=== PATIENT | female | born 2005 | race Caucasian/White ===

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

== ENCOUNTER 2024-02-12 10:01 | Inpatient (IN) ==
[2024-02-12] MEDS ORDERED: OXYTOCIN 10 UNIT/ML VIAL IM PRN (10:41)
[2024-02-12] MEDS ORDERED: LACTATED RINGERS 1,000 ML IV PRN (10:41)
[2024-02-12] MEDS ORDERED: NIFEdipine 10 MG CAPSULE PO PRN (10:41)
[2024-02-12] MEDS ORDERED: CARBOPROST TROMETHAMINE 250 MCG/ML VIAL IM PRN (10:41)
[2024-02-12] MEDS ORDERED: SODIUM CHLORIDE FLUSH 0.9% 10 ML SYRINGE IVP PRN (10:41)
[2024-02-12] MEDS ORDERED: METHYLERGONOVINE 0.2 MG/ML VIAL IM PRN (10:41)
[2024-02-12] MEDS ORDERED: hydrALAZINE INJ 20 MG/ML VIAL IVP PRN ×2 (10:41)
[2024-02-12] MEDS ORDERED: TRANEXAMIC ACID IN NACL 1,000 MG/100 ML BAG IV PRN (10:41)
[2024-02-12] MEDS ORDERED: LABETALOL 20 MG/4 ML SYRINGE IVP PRN ×3 (10:41)
[2024-02-12] MEDS ORDERED: miSOPROStoL 200 MCG TABLET BC PRN (10:41)
--- NOTE | 2024-02-12 10:48 | HISTORY & PHYSICAL EXAMINATION ---
Admit History Smoking Status: Never smoker Meds/Allgy Home Medications Ambulatory Orders Medication Instructions Recorded Confirmed vitamins no.159-iron tab PO 12/26/23 02/05/24 fumarate 28 mg-folic acid 800 mcg tablet ( Vitamin) Allergies Allergies Allergy/AdvReac Type Severity Reaction Status Date / Time No Known Drug Allergies Allergy Verified 02/05/24 08:50 [facility] Social History Social History (Updated 12/26/23 @ 10:13 by Marian Richter MA) Smoking Status: Never smoker Do you vape?: No ETOH Use: None Substance Use: denies use Plan for Labor Plan For Labor I expect patient to be DC'd or transferred within 96 hours.: Yes Plan for Labor: HPI: Kyara is a 19yo @ 39.5wks gestation by LMP c/w 11wk U/S who presents to [facility] for term induction of labor. She denies vaginal bleeding, leakage of fluid or contractions. She reports +FM. Upon arrival her cervix is 1/50/-2 and vertex with intact membranes. FHR baseline is noted to be in a Category I pattern with FHR baseline 130s and no contractions appreciated via tocometry. She has been a patient of [facility] for the duration of her which has remained uncomplicated. She is supported by her family today. She will be admitted to [facility] for induction of labor with pre-induction cervical ripening. She is noted to be GBS positive and will receive antibiotics for prophylaxis per protocol. Dating criteria: LMP: 05/10/2023 NENITA by LMP: 02/14/2024 Initial U/S 08/03/2023 @ 11+2 C/W LMP dating (02/20/2024 by U/S) Final NENITA: 02/14/2024 Medical Hx: no significant Surgical Hx: none Social Hx: She is active duty [employer]. FOB: NOT involved- Does not wish to discuss. Never smoker. No ETOH or IVDA. Well supported by family and friends. Family Hx: Non contributory Pre- Weight:146.6 BMI: 24.48 Blood type: A+ Antibody: Negative CBC: PLT 269 HCT 34.1 HGB 11.8 RUB: Equivocal (13) VZV:Immune HBsAg: Negative HepC: NR RPR/AB-EIA: NR HIV: NR PAP:never GC/CT: 08/20 negative HSV:denies Genetic testing: not interested Covid: vaccinated Flu: vaccinated FAS: 10/05 Placenta: fundal; w/ pedunculated fibroid Cord: 3VC LEMUEL: 16.9cm EFW: 322g; 21%tile 50gm OGCT: 130 3HR GTT: TDAP: 12/26/2023 Breast Pump: RPR: NR Antibody screen: 3rd trimester PLT 266 HBG11.6 HCT 34.4 3rd trimester HIV GBS: POSITIVE Physical exam: Normocephalic, atraumatic Heart RRR w/o M/G/R Lungs CTAB Abdomen gravid, soft, nontender FHR baseline 130s, moderate variability, + accels, no decels No contractions appreciated via tocometry SVE 1/50/-2, vertex Bilateral LE's trace edema Mood is good Assessment: 19yo @ 39.5wks gestation Term induction of labor FHR Category I GBS positive Plan: Pre-induction cervical ripening placement of cervical ripening balloon with 50mcg BC misoprostol q 4 hrs Continuous monitoring Jacuzzi PRN. Nitrous oxide PRN. Epidural per maternal request. Anticipate .
--- NOTE | 2024-02-12 11:21 | PHARMACY PROGRESS NOTE ---
Best Possible Medication History Admit Date and Time: 02/12/24 1041 Home Medications Medication Instructions Recorded Confirmed Type vitamins no.159-iron 1 tab PO DAILY 12/26/23 02/12/24 History fumarate 28 mg-folic acid 800 mcg tablet ( Vitamin) Processed by: Pharmacy Medications reviewed in ED?: No Medication History completed: Yes Patient Interview: Pt unable to participate Secondary Source(s): Physician records and Insurance records [facility] Statement: As the person ultimately responsible for medication therapy, providers are able to order a medication from an existing home medication list in [facility] via the "Reconcile Routine" prior to Confirmation of that medication by service support representative. Such practice is discouraged except when the physician, in their clinical judgment, deems that a medical need exists for a medication without regard to previous use.
[2024-02-12 13:50] LABS: BASOPHILS % (AUTO) 0.3 %; EOSINOPHILS # (AUTO) 0.1 10^3/uL (0.0-0.7); EOSINOPHILS % (AUTO) 0.7 %; HCT - HEMATOCRIT 34.3 % (37.0-47.0); HGB - HEMOGLOBIN 12.1 g/dL (12.0-16.0); LYMPHOCYTES # (AUTO) 2.8 10^3/uL (1.5-3.5); LYMPHOCYTES % (AUTO) 26.3 %; MEAN CORPUSCULAR HEMOGLOBIN 32.6 pg (27.0-31.0); MEAN CORPUSCULAR HGB CONC 35.3 g/dL (32.0-36.0); MEAN CORPUSCULAR VOLUME 92.5 fL (81.0-99.0); MEAN PLATELET VOLUME 10.9 fL (7.9-10.8); MONOCYTES # (AUTO) 0.6 10^3/uL (0.0-1.0); MONOCYTES % (AUTO) 5.9 %; NEUTROPHILS # (AUTO) 7.1 10^3/uL (1.5-6.6); NEUTROPHILS % (AUTO) 66.2 %; PLT - PLATELET COUNT 226 10^3/uL (130-450); RED BLOOD COUNT 3.71 10^6/uL (4.20-5.40); RED CELL DISTRIBUTION WIDTH 13.2 % (12.0-15.0); WHITE BLOOD COUNT 10.7 x10^3/uL (4.8-10.8)
[2024-02-12 14:04] LABS: CREATININE,URINE 18.3 mg/dL; TOTAL PROTEIN,URINE TIMED < 4 mg/dL
[2024-02-12 14:05] LABS: ALBUMIN 3.6 g/dL (3.2-5.5); BILIRUBIN,TOTAL 0.3 mg/dL (0.2-1.0); CALCIUM 9.3 mg/dL (8.5-10.3); CREATININE 0.5 mg/dL (0.6-1.3); POTASSIUM 3.9 mmol/L (3.5-4.5); TOTAL PROTEIN 7.1 g/dL (6.4-8.9)
[2024-02-12] MEDS: miSOPROStoL 100 MCG TABLET BC SCH (14:48)
--- NOTE | 2024-02-12 17:17 | ANESTHESIA PROCEDURE NOTE ---
Pre-Anesthesia VS, & Labs Diagnosis Surgical Diagnosis:: IOL Procedure Procedure: epidural at patient request Vitals Vital Signs: Temp Pulse Resp BP Pulse Ox 36.8 C 75 16 121/63 99 02/12/24 15:04 02/12/24 15:04 02/12/24 15:04 02/12/24 15:04 02/12/24 15:04 NPO NPO: Other Is Patient ?: Yes Lab Results Current Lab Results: Laboratory Tests 02/12/24 13:35: WBC 10.7, RBC 3.71 L, Hgb 12.1, Hct 34.3 L, MCV 92.5, MCH 32.6 H , MCHC 35.3, RDW 13.2, Plt Count 226, MPV 10.9 H, Neut # (Auto) 7.1 H, Lymph # (Auto) 2.8, [place] # (Auto) 0.6, Eos # (Auto) 0.1, Baso # (Auto) 0.0, Absolute Nucleated RBC 0.00, Nucleated RBC % 0.0, Sodium 136, Potassium 3.9, Chloride 106, Carbon Dioxide 21, Anion Gap 9.0, BUN 7, Creatinine 0.5 L, Estimated GFR (MDRD) 157, Glucose 82, Calcium 9.3, Total Bilirubin 0.3, AST 11, ALT 8 L, A lkaline Phosphatase 200 H, Total Protein 7.1, Albumin 3.6, Globulin 3.5, Albumin/Globulin Ratio 1.0, Blood Type A POSITIVE, Antibody Screen NEGATIVE 02/12/24 13:35 02/12/24 13:35 Meds/Allgy Home Medications Ambulatory Orders Medication Instructions Recorded Confirmed vitamins no.159-iron 1 tab PO DAILY 12/26/23 02/12/24 fumarate 28 mg-folic acid 800 mcg tablet ( Vitamin) Allergies Allergies Allergy/AdvReac Type Severity Reaction Status Date / Time No Known Drug Allergies Allergy Verified 02/05/24 08:50 [facility] Social History Social History (Updated 12/26/23 @ 10:13 by Marian Richter MA) Smoking Status: Never smoker Do you dip or chew tobacco?: No Do you vape?: No ETOH Use: None Substance Use: denies use Anesthesia Exam (Expanded) Exam General: Alert, Oriented x3 and No acute distress Dental: WNL Mouth Opening: Greater than 4 Fingerbreadths Neck Mobility: Normal Mallampati classification: II Thyromental Distance: greater than 6 cm Respiratory: Lungs clear Cardiovascular: Regular rate Plan Plan Anesthesia Type: Epidural Consent for Procedure(s) Verified and Reviewed: Yes Code Status: Attempt Resuscitation ASA Classification ASA classification: 2-Mild systemic disease Is this case an emergency?: No
[2024-02-12] MEDS ORDERED: AMPICILLIN 2 GM VIAL IV ONE (21:04)
--- NOTE | 2024-02-12 21:08 | PROVIDER PROGRESS NOTE ---
Labor Progress Note Labor Progress Note Labor Progress Note/Additional Text: S: Feeling much more uncomfortable with contractions over the past 45 minutes. She is breathing through contractions although tolerating them well. She requests the use of nitrous oxide following examination. Family supportive at the bedside. She denies headache, visual disturbances, RUQ or epigastric pain. O: FHR baseline 140s, moderate variability, + accels, no decels Contractions palpate moderate to strong every 2-3 minutes with soft resting tone SVE 6-7/70/-2. Vertex. SROM small amount of clear fluid A: 19yo @ 39.5wks gestation by LMP c/w 11wk U/S Active labor Gestational hypertension- Pre-E labs WNL/neg FHR Category I GBS positive P: Discontinue misoprostol. Initiate expectant management - will initiate picotin if contractions decrease less than every 4-5 minutes. Start ampicillin for GBS prophylaxis per protocol now. Continuos monitoring. Nitrous oxide PRN. Jacuzzi PRN. Epidural per maternal request. Anticipate .
[2024-02-12] MEDS: SODIUM CHLORIDE FLUSH 0.9% 10 ML SYRINGE IVP SCH (21:15)
[2024-02-12] MEDS: LACTATED RINGERS 1,000 ML IV PRN (21:16)
[2024-02-12] MEDS: AMPICILLIN 2 GM in SODIUM CHLORIDE 0.9% MINIBAG 100 ML IV ONE (21:16)
[2024-02-12] MEDS: ONDANSETRON 4 MG/2 ML VIAL IVP PRN (21:54)
[2024-02-12] MEDS ORDERED: diphenhydrAMINE INJ 50 MG/ML VIAL ONE (23:10)
[2024-02-12] MEDS: diphenhydrAMINE INJ 50 MG/ML VIAL IVP ONE (23:17)
[2024-02-12] MEDS: OXYTOCIN/SODIUM CHLORIDE 500 ML IV PRN (23:45)
[2024-02-13] MEDS: lidocaine 1% 20 ML MDV ID PRN
[2024-02-13] MEDS ORDERED: LABETALOL 5 MG/1 ML 20 ML MDV IVP PRN (00:06)
[2024-02-13] MEDS ORDERED: SIMETHICONE CHEW 80 MG TABLET PO PRN ×2 (00:06→19:54)
[2024-02-13] MEDS ORDERED: OXYTOCIN/SODIUM CHLORIDE 500 ML IV PRN (00:06)
[2024-02-13] MEDS ORDERED: NIFEdipine 10 MG CAPSULE PO PRN (00:06)
[2024-02-13] MEDS ORDERED: hydrALAZINE INJ 20 MG/ML VIAL IVP PRN ×2 (00:06)
[2024-02-13] MEDS ORDERED: LABETALOL 20 MG/4 ML SYRINGE IVP PRN ×2 (00:06)
[2024-02-13] MEDS ORDERED: NALOXONE 0.4 MG/ML VIAL IVP PRN (00:06)
--- NOTE | 2024-02-13 00:44 | DELIVERY NOTE ---
Delivery Note Delivery Comments (Free Text/Narrative) Delivery Comments (Free Text/Narrative): Labor: This 19yo @ 39.5wks gestation by LMP c/w 11wk U/S presented to [facility] for induction of labor. Cervix was 1/50/-2 and vertex with intact membranes. She was noted to have 2 elevated blood pressures greater than 4 hours apart following admission, giving her the diagnosis of gestational hypertension. Her preeclampsia labs were within normal limits. She had a cervical ripening balloon placed followed by 2 doses of misoprostol for effective pre-induction cervical ripening. The balloon was spontaneously expelled at 1830. FHR demonstrated Category I pattern throughout labor. Normal labor course. AROM occurred at 2042 and was noted to be a small amount of clear fluid. She progressed to c/c and pushing at 4. : Normal SVB of viable female on 02/13/2024 @ 2329. No nuchal cord. The was placed on maternal abdomen, stimulated, dried, and placed skin to skin. 's were 8/9 at 1 and 5 min respectively. Pitocin administered via IV for hemostasis. The umbilical cord was allowed to stop pulsating at which time it was doubly clamped by CNM and cut by FOB. Cord blood was obtained. 3VC. Fundal massage and gentle cord traction applied for active management of the third stage. Placenta delivered spontaneously and intact at 2331. EBL 250mL. Fourth stage: Uterine fundus firm and there is no excessive bleeding. The perineum, vagina, and cervix were inspected and found to have a 1st degree perineal laceration which was repaired using a 3-[address]-1 needle, in standard fashion and under sterile conditions. Vaginal examination following repair was performed. Tissues well approximated. initiated. Both mother and baby were left in stable condition.
[2024-02-13] MEDS: IBUPROFEN 600 MG TABLET PO PRN ×2 (00:48→23:41)
[2024-02-13] MEDS: ACETAMINOPHEN 500 MG TABLET PO PRN ×2 (00:49→20:22)
[2024-02-13] MEDS ORDERED: AMPICILLIN 1 GM in SODIUM CHLORIDE 0.9% MINIBAG 100 ML IV SCH (01:00)
[2024-02-13] MEDS: SIMETHICONE CHEW 80 MG TABLET PO SCH (08:26)
[2024-02-13] MEDS: DOCUSATE SODIUM 100 MG CAPSULE PO SCH (08:27)
[2024-02-13] MEDS: IBUPROFEN 600 MG TABLET PO SCH (08:27)
[2024-02-13] MEDS ORDERED: DOCUSATE SODIUM 100 MG CAPSULE PO SCH (09:00)
--- NOTE | 2024-02-13 14:27 | PROVIDER PROGRESS NOTE ---
Subjective Subjective Subjective: S: Bonding well with baby. without difficulty. Bleeding decreased and is light. Pain is well controlled with oral medications. She is urinating without difficulty. Has not yet had BM. O: Heart RRR w/o M/G/R, lungs CTAB, abdomen soft and nontender with fundus firm at U, perineum intact, light lochia rubra, bilateral LE's trace edema A: 19yo -->P1 PPD#1 s/p TSVD viable female Normal recovery P: Continue routine care and medications. Evaluate for discharge home tomorrow Current Medications Current Medications Current Medications: Current Medications Generic Name Dose Route Start Last Admin Trade Name Freq PRN Reason Stop Dose Admin Acetaminophen 1,000 mg 02/13/24 07:05 Acetaminophen 500 Mg Tablet PO Q8H PRN Pain or Fever > 38C (100.4F) Docusate Sodium 100 mg 02/13/24 09:00 02/13/24 08:27 Docusate Sodium 100 Mg Capsule PO 100 mg BID CRYSTAL Administration Hydralazine HCl 5 - 20 mg 02/12/24 10:41 Hydralazine Inj 20 Mg/Ml Vial IVP Q20M PRN SBP >160 or DBP >110 Protocol Hydralazine HCl 10 mg 02/12/24 10:41 Hydralazine Inj 20 Mg/Ml Vial IVP 02/17/24 10:41 .ONCE PRN Step 9 of Labetalol protocol Protocol Ibuprofen 600 mg 02/13/24 08:00 02/13/24 14:03 Ibuprofen 600 Mg Tablet PO 600 mg Q6HR CRYSTAL Administration Labetalol HCl 20 - 80 mg 02/12/24 10:41 Labetalol 20 Mg/4 Ml Syringe IVP Q10M PRN SBP >160 or DBP >110 Protocol Labetalol HCl 20 mg 02/12/24 10:41 Labetalol 20 Mg/4 Ml Syringe IVP 02/17/24 10:41 .ONCE PRN Step 9 of nifedipine protocol Protocol Labetalol HCl 40 mg 02/12/24 10:41 Labetalol 20 Mg/4 Ml Syringe IVP 02/17/24 10:41 .ONCE PRN Step 9 of hydrALAZine protocol Protocol Nifedipine 10 - 20 mg 02/12/24 10:41 Nifedipine 10 Mg Capsule PO Q20M PRN SBP >160 or DBP >110 Protocol Simethicone 80 mg 02/13/24 09:00 02/13/24 13:06 Simethicone Chew 80 Mg Tablet PO 80 mg 0900,1300,1800,2100 CRYSTAL Administration Objective Vital Signs/Intake & Output Vital Signs: Vital Signs x48h Temp Pulse Resp BP Pulse Ox 02/13/24 13:00 36.8 C 95 16 125/75 97 02/13/24 09:12 37.0 C 80 16 121/73 98 Intake & Output: Intake & Output 02/10/24 02/11/24 02/12/24 02/13/24 23:59 23:59 23:59 23:59 Intake Total 100 / 100 500 / 500 Balance 100 / 100 500 / 500 Weight (kg) 80.2 kg Lab Results 02/12/24 13:35 02/12/24 13:35 Other Labs: Lab Results x24hrs 02/12/24 Range/Units 13:35 Blood Type A POSITIVE Antibody Screen NEGATIVE
[2024-02-14 08:49] VITALS: TEMP 98.4; O2SAT 98
--- NOTE | 2024-02-14 12:36 | Discharge Summary ---
Discharge Summary Admit Date: 02/12/24 Discharge Date: 02/14/24 HOSPITAL COURSE Hospital Course: Diagnosis on Discharge: 1. 19yo @ 39.5wks gestation 2. Term induction of labor 3. FHR Category I 4. GBS positive Diagnosis on Discharge: 1. 19yo PPD#1 s/p TSVD viable female infant 2. 3. Rubella equivocal -->s/p MMR vaccine 4. Normal recovery Brief History: She is a patient of [facility] who presented on 02/12/2024 for induction of labor. Cervix was 1/50/-2 and vertex with intact membranes. Cervical ripening balloon and 50mcg of misoprostol x 2 doses for pre-induction cervical ripening followed by AROM which occurred at 2042 and was noted to be a moderate amount of clear fluid. She spontaneously progressed to deliver a viable female infant on 02/12/2024 @ 2329. Perineum was noted to have a 1st degree laceration which was repaired using a 3-[address]-1 needle in standard fashion and under sterile conditions. Apgars were 89/ at 1 and 5 minutes respectively. QBL 250 mL. She has been doing well in her course. She is ambulating and tolerating a regular diet. She is urinating without difficulty and her lochia is normal. Her pain is well controlled with oral medications. MMR vaccine administered prior to discharge. She will be discharged home today on day #1 with instructions to continue taking her vitamin while and to continue taking Ibuprofen and Tylenol over the counter as needed for pain management. She intends to follow up with myself at [facility] in 1 week for routine visit or sooner if needed. She has been given precautions to call if she has any worsening fevers, chills, abdominal pain, increased vaginal bleeding or foul smelling vaginal lochia. Physical Exam: Normocephalic, atraumatic. Heart RRR w/o M/G/R, lungs CTAB, abdomen soft and nontender with fundus firm at U, perineum intact, light lochia rubra, bilateral LE's no edema. Mood is good. ALLERGIES Allergies Allergy/AdvReac Type Severity Reaction Status Date / Time No Known Drug Allergies Allergy Verified 02/05/24 08:50 MEDICATIONS Ambulatory Orders Medication Instructions Recorded Confirmed vitamins no.159-iron 1 tab PO DAILY 12/26/23 02/12/24 fumarate 28 mg-folic acid 800 mcg tablet ( Vitamin) LABS 02/12/24 13:35 02/12/24 13:35 Discharge Plan Discharge Patient Disposition: 01 Home, Self Care Prescriptions: Continued Vitamin 28 mg iron- 800 mcg tablet 1 tab PO DAILY Print Language: Estonian Patient Instructions: Vaginal After
[2024-02-14 13:04] VITALS: BP 128/78
[2024-02-14] MEDS: MEASLES,MUMPS & RUBELLA VACC 0.5 ML VIAL SUBQ ONE (15:08)
--- NOTE | 2024-02-14 15:36 | Labor Flowsheet ---
Labor Flowsheet Datetime Report Generated by CPN: 02/14/2024 15:36 Datetime: 02/14/2024 05:47 VITAL SIGNS NBP Sys/Lily/Mean (mmHg): 115 : 79 : 86 Pulse: 81 Datetime: 02/13/2024 20:14 SpO2 (%): 95 Datetime: 02/12/2024 23:35 Stage of : Datetime: 02/12/2024 23:29 UTERINE ACTIVITY Monitor Mode: External Frequency (min): 2-3 Quality: Strong Duration (sec): 60-80 Pattern: Normal: <= 5 Contractions in 10 Minutes Resting Tone (Palpate): Relaxed ASSESSMENT A Monitor Mode: External US Monitor Interventions for FHR: Ultrasound Adjusted FHR Baseline Rate : 145 Decelerations: Early; Variable Category: Category II Datetime: 02/12/2024 23:17 MEDICATIONS Analgesics/Sedatives: Benadryl (mg) @ Datetime: 02/12/2024 23:14 VAGINAL EXAM Dilatation (cm): 10.0 Effacement (%): 100 Datetime: 02/12/2024 23:08 Communication Comments: orders received for benadryl 25 mg Datetime: 02/12/2024 23:07 Patient Position/Activity: Right Extreme Datetime: 02/12/2024 23:00 Variability: Marked >25 bpm Accelerations: 15X15 Datetime: 02/12/2024 22:58 STAGE 2 Pushing: Urge to Push Datetime: 02/12/2024 22:53 Pain Assessment Comments: requesting ian, ramya aube globe cleaner notified LaborFlag: Labor Datetime: 02/12/2024 22:52 Exam by: A [place] CNM Datetime: 02/12/2024 22:47 COMMUNICATION Communication: Provider at Bedside Datetime: 02/12/2024 22:33 Temperature (C): 37.4 Datetime: 02/12/2024 22:31 Station: 0 Datetime: 02/12/2024 22:27 Comments: endorses urge to push A [place] notified, asked for cervical exam Datetime: 02/12/2024 21:58 Vaginal Exam Comments: pt reports feeling like she needs to have a bm, anterior lip noted Datetime: 02/12/2024 21:49 Nausea/Vomiting: Present Datetime: 02/12/2024 21:47 Patient Care Comments: SLR Datetime: 02/12/2024 21:20 PAIN Pain Scale: 7 Pain Type: Contraction Pain Location: Abdomen; Back Pain Relief Measures: Comfort Measures Pain Coping: Talking Through Contractions; Breathing Through Contractions Amniotic Fluid Odor: Normal Datetime: 02/12/2024 21:16 Antibiotics: Ampicillin IV 2 Gm PATIENT CARE IV/Blood Work: IV Infusing per Order Datetime: 02/12/2024 20:59 Contraction Comments: coupling of UCs noted Datetime: 02/12/2024 20:54 Provider Notified (Name): A. [place], CNM Datetime: 02/12/2024 20:46 Comfort Measures: Breathing/Relaxation Datetime: 02/12/2024 20:43 Membrane Status: Ruptured Membranes Ruptured Date/Time: 02/12/2024 20:43 Membranes Rupture Method: Artificial Amniotic Fluid Color: Clear Amniotic Fluid Amount: Small Datetime: 02/12/2024 20:40 I/O Interventions: Ice Chips Given Datetime: 02/12/2024 20:30 Monitor Interventions for UA: Fuig Adjusted Datetime: 02/12/2024 19:55 TEACHING Instructional Method: Verbal Plan of Care: Plan of Care Discussed Labor/Induction: Labor Stages; Cervical Ripening; Induction Pain Management: Epidural; PRN Medications; Pain Scale/Goals; Comfort Measures Medications: Cervical Ripening; Pitocin Related: Common Discomforts of ; Maternal Physical Changes; Hydration; Activity and Rest Datetime: 02/12/2024 19:18 MATERNAL ASSESSMENT Level of Consciousness: Alert DTR's/Clonus: No Clonus Headache: Denies RUQ Epigastric Pain: Denies Datetime: 02/12/2024 18:33 Cervical Ripening Agents: Vilchis Balloon; Cytotec @ Medication Comments: bc 2nd dose Datetime: 02/12/2024 10:30 Vaginal Bleeding: None Cervix, Position: Anterior
== END 2024-02-14 15:34 | disposition home or self-care (01) | DRG 807 ==
LOC: WFO 10:01 → FBP 10:05
PROVIDERS: ADMIT Nurse Practitioner Obstetrics & Gynecology; ATTEND Nurse Practitioner Obstetrics & Gynecology